=== PATIENT | female | born 1985 | race Caucasian/White ===

== ENCOUNTER 2018-08-18 15:30 | Inpatient (IN) | payer OTHER ==
[~2018-08-18] VITALS: Ht 167.6 cm; Wt 78.5 kg
[2018-09-10] MEDS ORDERED: OBSTETRIX EC C1 EACH PO (03:58)
== END 2018-09-12 12:19 | disposition home or self-care (01) | DRG 807 ==
LOC: LDR 09-10 03:32 → EDBD 09-10 03:32 → OB/GYN 09-10 13:54
PROC: 10E0XZZ Delivery of Products of Conception, External Approach (ICD-10-PCS; principal; 2018-09-10)
PROC: 10907ZC Drainage of Amniotic Fluid, Therapeutic from Products of Conception, Via Natural or Artificial Opening (ICD-10-PCS; 2018-09-10)
PROC: 0W8NXZZ Division of Female Perineum, External Approach (ICD-10-PCS; 2018-09-10)
PROC: 3E033VJ Introduction of Other Hormone into Peripheral Vein, Percutaneous Approach (ICD-10-PCS; 2018-09-10)
PROC: 4A1HXCZ Monitoring of Products of Conception, Cardiac Rate, External Approach (ICD-10-PCS; 2018-09-10)
DX: O80 Encounter for full-term uncomplicated delivery (principal); Z37.0 Single live birth; Z3A.39 39 weeks gestation of pregnancy

== ENCOUNTER → 2021-08-16 | Day surgery (SDC) | payer OTHER ==
[~2021-08-16] MED LIST: OBSTETRIX EC C1 EACH PO
== END | disposition home or self-care (01) ==
LOC: ADM 08-15 09:15 → CIR.AMB 07:00
PROVIDERS: ATTEND Surgery
DX: D05.12 Intraductal carcinoma in situ of left breast (principal); D24.1 Benign neoplasm of right breast; N62 Hypertrophy of breast; Z42.1 Encounter for breast reconstruction following mastectomy